=== PATIENT | female | born 1955 | race Caucasian/White ===

== ENCOUNTER 2017-05-09 17:11 | Inpatient (IN) ==
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
[2017-05-09] MEDS ORDERED: SODIUM CHLORIDE 0.9% 500 ML IV STA (17:53)
--- NOTE | 2017-05-09 18:05 | XRay Report ---
XR chest 2V Indication: Shortness of breath Comparison: 14 November 2016 Findings: The heart and mediastinum are stable in size and configuration with cardiac surgery changes. The pulmonary vascularity is normal in caliber. Lung volumes are increased with prominent bronchial markings. No lung infiltrates, effusions, pneumothorax or other abnormality is demonstrated. Impression: Chronic lung and cardiac surgery changes. No acute process or significant change. PROCEDURE INTERPRETED AT [facility] DEPARTMENT OF RADIOLOGY Final Report Signed by: Dr. Kurt Parsons
[2017-05-09 18:11] LABS: Basophils % 0.8 % (0.0-0.8); Eosinophils % 0.6 % (0.00-10.9); Hemoglobin 13.6 GM/DL (12.0-16.0); Immature Granulocytes % 0.4 %; Immature Granulocytes Absolute 0.02 #; Lymphocytes % 18.1 % (21.3-54.2); Mean Corpuscular Hemoglobin 37 PG (27-34); Mean Corpuscular Volume 109.3 FL (87-102); Mean Platelet Volume 12.3 FL (9.6-12.0); Monocytes # 0.4 10*3/uL (0.11-0.8); Monocytes % 7.4 % (1.7-12.7); Neutrophils # 3.9 10*3/uL (1.4-7.4); Neutrophils % 72.7 % (38.7-73.9); Platelet Count 179 T/CUMM (130-400); Red Blood Count 3.66 MC/CUMM (3.8-5.5); White Blood Count 5.3 T/CUMM (4-12)
--- NOTE | 2017-05-09 18:11 | EKG Report ---
Stationary ECG Study [facility] ER Test Date: 05/09/2017 6:11:39 PM Pat Name: SATHYA RAYMOND Department: Room: Gender: F Machine Assembler Supervisor: : 1955 Requested by: Salvador Medina Order Number: [id number] Reading MD: THAD PENN Intervals [place] Rate: 89 P: 59 SD: 92 QRS: 69 QRSD: 91 T: 79 QT: 399 QTc: 446 Interpretive Statements SINUS RHYTHM WITH SHORT SD INTERVAL WITH OCCASIONAL SUPRAVENTRICULAR PREMATURE COMPLEXES at 89 bpm NONSPECIFIC T-WAVE ABNORMALITY (anterior ischemic changes on previous tracing November 14, 2016 are now resolved) Electronically Signed On 05-10-17 12:23:47 CDT by THAD PENN [email or web address]
[2017-05-09 18:22] LABS: INR 1.1; PT Patient Result 11.2 SECS; Partial Thromboplastin Time 25.8 SECS (0-40)
[2017-05-09 18:35] LABS: Alanine Aminotransferase 55 U/L (13-56); Albumin 4.5 G/DL (3.4-5.0); Alkaline Phosphatase 62 U/L (45-117); Aspartate Amino Transferase 33 U/L (0-37); Blood Urea Nitrogen 24 MG/DL (7-18); Calcium 9.2 MG/DL (8.5-10.1); Glucose 100 MG/DL (74-106); Osmolality,Calculated 278.7 MOS/KG (273-304); Potassium 3.9 MMOL/L (3.5-5.1); Sodium 138 MMOL/L (136-145); Total Protein 8.1 G/DL (6.4-8.3); Troponin I Only < 0.015 NG/ML (0.00-0.045)
[2017-05-09] MEDS ORDERED: NITROGLYCERIN SL 0.4 MG TABLET SL PRN (20:54)
[2017-05-09] MEDS ORDERED: ONDANSETRON 4 MG/2 ML VIAL IV PRN (20:54)
[2017-05-09] MEDS ORDERED: SODIUM CHLORIDE 0.45% 1,000 ML IV SCH (21:00)
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
[2017-05-09] MEDS: MORPHINE 2 MG/1 ML SYRINGE IV PRN (22:48)
[2017-05-09] MEDS: ALPRAZolam 0.5 MG TABLET PO SCH (22:48)
[2017-05-09] MEDS: ZALEPLON 5 MG CAPSULE PO PRN (22:49)
[2017-05-10 03:23] LABS: Basophils % 0.6 % (0.0-0.8); Eosinophils # 0.1 10*3/uL (0.0-0.87); Eosinophils % 1.5 % (0.00-10.9); Hematocrit 31.7 VOL% (35.7-47.0); Hemoglobin 10.9 GM/DL (12.0-16.0); Immature Granulocytes % 0.3 %; Immature Granulocytes Absolute 0.02 #; Lymphocytes % 15.1 % (21.3-54.2); Mean Corpuscular HGB Conc 34.4 GM/DL (32-36); Mean Corpuscular Hemoglobin 38 PG (27-34); Mean Corpuscular Volume 109.3 FL (87-102); Mean Platelet Volume 12.6 FL (9.6-12.0); Monocytes # 0.6 10*3/uL (0.11-0.8); Monocytes % 9.5 % (1.7-12.7); Neutrophils # 4.8 10*3/uL (1.4-7.4); Platelet Count 135 T/CUMM (130-400); Red Cell Distribution Width 13.9 % (9.3-17.3); White Blood Count 6.5 T/CUMM (4-12)
[2017-05-10] MEDS: MORPHINE 2 MG/1 ML SYRINGE IV PRN (03:34)
[2017-05-10 03:51] LABS: Calcium 8.3 MG/DL (8.5-10.1); Osmolality,Calculated 282.5 MOS/KG (273-304); Potassium 3.7 MMOL/L (3.5-5.1)
[2017-05-10] MEDS: LEVOTHYROXINE 100 MCG TABLET PO SCH (06:37)
--- NOTE | 2017-05-10 07:58 | EKG Report ---
Please refer to the EKG image. Final interpretation is pending.
--- NOTE | 2017-05-10 08:21 | EKG Report ---
Please refer to the EKG image. Final interpretation is pending.
[2017-05-10] MEDS: FLUoxetine 20 MG CAPSULE PO SCH (08:38)
[2017-05-10] MEDS: DOCUSATE SODIUM 100 MG CAPSULE PO SCH (08:38)
[2017-05-10] MEDS: ASPIRIN CHEW 81 MG TABLET PO SCH (08:39)
[2017-05-10] MEDS: ALPRAZolam 0.5 MG TABLET PO SCH ×2 (08:39→20:53)
[2017-05-10] MEDS: LISINOPRIL 5 MG TABLET PO SCH (08:39)
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
[2017-05-10] MEDS ORDERED: POTASSIUM CHLORIDE 20 MEQ TABLET PO ONE (11:43)
--- NOTE | 2017-05-10 17:24 | Hospitalist Progress Note ---
Assessment and Plan (1) Chronic pain Status: Acute Assessment and plan: Patient is on chronic pain meds Will follow with Dr Dennis as outpt. Current Visit: Yes (2) Chest pain Status: Acute Assessment and plan: Cardiac enzymes are negative. She ran out of her pain meds.Cardiology states it is not cardiac in origin Plan For dc in am Current Visit: No (3) Hypothyroid Status: Acute Assessment and plan: on synthroid. TSH level Current Visit: No Hospitalist: Subjective Interval history: Patient complained of a chest pain earlier on, cardiac enzymes were negative. Cardiology saw and thought it was not cardiac origin. Patient is currently pain free and she requested to be dcd in am. Exam - Constitutional Vitals: Period Temp Pulse Resp BP Sys/Diehl Pulse Ox Last 24 Hr 97 F-98.3 F 78-92 16-18 89-101/50-63 95-99 General appearance: no acute distress, cachectic - Head Head exam: Present: normal inspection - Respiratory Respiratory exam: Present: clear to auscultation bilaterally - Cardiovascular Cardiovascular exam: Present: regular rate and rhythm - Extremities Exam Extremities exam: Present: normal inspection - Back Exam Back exam: Present: normal inspection - Neurological Exam Neurological exam: Present: alert, oriented X3 Results - Labs CBC & BMP: 05/10/17 02:54 05/10/17 02:54 Lab Results: I have reviewed the past 24 hour labs Specialty Discharge - Follow Up or Referrals
[2017-05-10] MEDS ORDERED: ENOXAPARIN 40 MG/0.4 ML SYRINGE SUBCUT SCH (17:30)
[2017-05-10 18:07] LABS: Troponin I Only < 0.015 NG/ML (0.00-0.045)
[2017-05-10 18:12] LABS: Free T4 (Free Thyroxine) 1.21 NG/DL (0.76-1.46); Thyroid Stimulating Hormone 0.08 uIU/ml (0.358-3.74)
[2017-05-10] MEDS: ZALEPLON 5 MG CAPSULE PO PRN (20:53)
[2017-05-11] MEDS: FLUoxetine 20 MG CAPSULE PO SCH (08:05)
[2017-05-11] MEDS: ALPRAZolam 0.5 MG TABLET PO SCH (08:06)
[2017-05-11] MEDS: ASPIRIN CHEW 81 MG TABLET PO SCH (08:06)
[2017-05-11] MEDS: LISINOPRIL 5 MG TABLET PO SCH (08:06)
[2017-05-11] MEDS: LEVOTHYROXINE 100 MCG TABLET PO SCH (08:45)
--- NOTE | 2017-05-11 09:01 | Discharge Summary ---
<Moe Redding - Last Filed: 05/11/17 08:49> Hospital Course - Hospital Course Hospital Course: Ms. Alvarado is a 61-year-old female who was admitted to the [facility] ED on 2016 with complaints of 2 days of nonradiating left-sided chest pain. Patient does have an extensive cardiac history having undergone a valve replacement approximately 6 months ago with a clean cardiac catheterization around the same time. On admission, chest x-ray revealed chronic lung and cardiac surgery changes with no acute process or significant change. EKG reveals sinus rhythm with short PA interval with occasional supraventricular premature complexes and nonspecific T-wave abnormality. Patient was admitted to telemetry through the hospital medicine service with chest pain, shortness of breath and nausea/ vomiting. Upon cardiology consultation, patient was found to have no evidence of cardiac abnormality. Cardiac enzymes were negative. This appears to be related to her chronic pain. Cardiology recommends restarting pain medication and follow-up with her pain physician regarding this (Dr. Dennis). She should also follow with her primary smoking pipe driller and threader Dr. Granda on a routine basis.this am , her vitals are stable and she is ready to be dcd. - Time spent with patient Time with patient DS: Greater than 30 minutes Specialty Discharge - Follow Up or Referrals Discharge Plan - Discharge Data Disposition: Disch To Home/Self Care - Discharge Medications Continue Fluoxetine HCl [Prozac] 40 mg PO DAILY HYDROcodone/ACETAMIN 10-325 [[place] 10-325] 1 tablet PO Q6H #20 tablet Ondansetron Tab [Zofran Tab] 4 mg PO Q4H #30 tablet Pantoprazole Tab [Protonix Tab] 40 mg PO DAILY Aspirin Chew Tab 81 mg PO DAILY #30 tablet Docusate Sodium Cap [Colace Cap] 100 mg PO DAILY capsule fentaNYL 12 MCG/HR PATCH [Duragesic 12 Patch] 1 patch TRANSDERM Q3DAY #7 patch Levothyroxine Tab [Synthroid Tab] 100 mcg PO DAILY@0700 HYDROcodone/ACETAMIN 10-325 [[place] 10-325] 1 tablet PO Q4H PRN PRN Reason: Pain Zaleplon [Sonata] 5 mg PO BEDTIME PRN #0 capsule PRN Reason: Sleep ALPRAZolam [Xanax] 0.5 mg PO BID #20 tablet Lisinopril [Prinivil] 5 mg PO DAILY #30 tablet - Follow Up or Referral - Forms/Instructions Instructions: Heart Failure (ED) Exam - Constitutional Vitals: Period Temp Pulse Resp BP Sys/Diehl Pulse Ox Last 24 Hr 97 F-98.4 F 86-99 16-20 95-111/46-54 96-98 Discharge Results Procedures and tests throughout hospitalization: Pending Orders 05/09/17 18:09 Blood Culture Stat Labs on day of discharge: Labs from last 24 hours 05/10/17 05/10/17 05/10/17 17:33 17:33 17:30 D-Dimer, Quantitative <= 0.5 Total Creatine Kinase 57 CK-MB (CK-2) 2.9 Troponin I < 0.015 Free T4 1.21 TSH 3rd Generation 0.080 L Preliminary micro results at discharge 05/09/17 18:09 Blood Culture - Preliminary Blood No growth at 1 day 05/09/17 18:02 Blood Culture - Preliminary Blood No growth at 1 day DS: Provider Date of admission: 05/09/17 20:36 Primary care physician: Dolly Duggan MD Attending physician on admission: Dominic Andrews DO Consults: 05/09/17 21:01 Consult to Cardiac Rehabilitation [CONS] Routine Reason for Cardiac Rehabilitation: Risk Factor Modification 05/10/17 07:27 Consult to Physician [CONS] Routine Comment: Consulting Provider: Consult to Specialist Group: Cardiology Discharging clinician: Moe ROLON Expected date of discharge: 05/11/17 <Sherita Goss - Last Filed: 05/11/17 09:11> Hospital Course - Time spent with patient Time with patient DS: Greater than 30 minutes (Time spent: >35mins) Diagnosis - Discharge Diagnosis (1) Chronic pain Status: Acute (2) Chest pain Status: Acute (3) Hypothyroid Status: Acute Discharge Plan - Discharge Data Condition at Discharge: Stable Discharge Diet: advance to your usual diet Activity: resume usual activities as tolerated - Forms/Instructions Additional Discharge Instructions: follow up with PCP in 1week, follow with Dr Dennis as scheduled Exam - Constitutional General appearance: no acute distress, cachectic - Head Head exam: Present: normal inspection - Respiratory Respiratory exam: Present: clear to auscultation bilaterally - Cardiovascular Cardiovascular exam: Present: regular rate and rhythm - GI/Abdominal GI/Abdominal exam: Present: normal bowel sounds - Extremities Exam Extremities exam: Present: normal inspection
[2017-05-11] MEDS: DOCUSATE SODIUM 100 MG CAPSULE PO SCH (11:42)
[2017-05-11 11:49] VITALS: BP 94/45
--- NOTE | 2017-05-13 13:10 | Physician Query Form ---
CLICK EDIT DOCUMENT TO SELECT QUERY ANSWER --> OK --> SIGN Aminata Solares RN, CCDS Certified Clinical Surgical Services Asst W) [phone] (f) [phone] [email or web address] PROVIDERS: Make your selection(s) from the choices in EACH section by typing an "x" and enter comments in the comment section. Please use your independent medical judgment in providing your response. This request does not imply that any particular answer is desired or expected. CLINICAL INDICATORS: (Providers should not edit this section) Height: Height of 66" Weight: Weight of 89 Pounds Stretching Machine Tender Frame BMI: BMI of 14.4# Nutritional supplements: Torch Straightener And Heater notes: Other clinical notes: The medical record indicates that the patient was admitted with chest pain (Non- cardiac), "underweight", "Cachectic", "Temporal wasting bilaterally", "states she also has a poor appetite", "half her stomach was removed about 8 years ago" , "loss of body fat", "loss of muscle mass", and "Send trial Breeze with b' fast tray". BMI of 14.4#----Height of 66"----Weight of 89 Pounds Based on the above, which following choice most accurately represents the patient's nutritional status? ( ) Malnutrition ( ) mild ( ) moderate ( x) severe ( ) Protein calorie malnutrition ( ) mild ( ) moderate ( ) severe ( ) Emaciation due to malnutrition ( ) Nutritional marasmus ( ) Cachexia ( ) Underweight ( ) No nutritional deficiency ( ) Other, please specify: ( ) Clinically unable to determine Mild Malnutrition (BMI < 18.5, % Normal Body Weight 85-95%) Moderate Malnutrition (BMI < 17, % Normal Body Weight 75-85%) Severe Malnutrition (BMI < 16, % Normal Body Weight < 75%) Source: Shayla COMMENTS: PLEASE ALSO DOCUMENT RESPONSE IN PROGRESS NOTES AND/OR DISCHARGE SUMMARY Use of terms such as suspected, likely, or probable (associated with a specific diagnosis that is being evaluated, monitored, or treated as if it exists) are acceptable and can be restated in the discharge summary if not ruled out. MTDD
== END 2017-05-11 13:35 | disposition home or self-care (01) | DRG 313 ==
LOC: EDUNIT# → EDBD → N.ED 17:11 → N.EDINP 20:36 → SUATTDRO 20:36 → N.TELEN 21:03
PROVIDERS: ADMIT Phlebology; ATTEND Internal Medicine

== ENCOUNTER 2021-02-10 16:39 | Inpatient (IN) ==
[2021-02-10 17:26] LABS: Basophils % 0.1 % (0.0-0.8); Hematocrit 32.5 VOL% (35.7-47.0); Hemoglobin 10.4 GM/DL (12.0-16.0); Immature Granulocytes % 0.6 %; Immature Granulocytes Absolute 0.08 #; Lymphocytes # 0.3 10*3/uL (1.4-4.0); Lymphocytes % 2.4 % (21.3-54.2); Mean Platelet Volume 12.8 FL (9.6-12.0); Monocytes % 7.1 % (1.7-12.7); Neutrophils % 89.8 % (38.7-73.9); Platelet Count 162 T/CUMM (130-400); Red Blood Count 3.35 MC/CUMM (3.8-5.5); Red Cell Distribution Width 14.6 % (9.3-17.3); White Blood Count 14.4 T/CUMM (4-12)
[2021-02-10 17:33] LABS: Bacteria,Urine Few /HPF (Few); Bilirubin,Urine Negative (Negative); Blood, Urine Small mg/dL (Negative); Glucose,Urine (UA) Negative (Negative); Ketones,Urine Negative (Negative); Nitrite,Urine Positive (Negative); Protein,Urine 100 MG/DL; RBC,Urine 2 /HPF (0-4); Squamous Epithelial Cell,Urine Occasional /HPF (0-10); Urine Appearance Slightly Hazy (Clear); Urine Color Yellow (Yellow); Urine Specific Gravity 1.013 (1.001-1.035); Urine Urobilinogen < 2.0 EU/DL (0.2-1.0); WBC,Urine 67 /HPF (0-6)
[2021-02-10 17:45] LABS: Albumin 3.3 G/DL (3.4-5.0); Bilirubin,Total 0.8 MG/DL (0.2-1.0); Calcium 8.1 MG/DL (8.5-10.1); Osmolality,Calculated 281.7 MOS/KG (273-304); Potassium 2.8 MMOL/L (3.5-5.1); Total Protein 7.8 G/DL (6.4-8.2)
[2021-02-10 18:17] LABS: Lymphocytes 1 % (20-55); Segmented Neutrophils 96 % (50-85); Total Cells Counted 100
[2021-02-10 18:18] LABS: Platelet Estimate Adequate
[2021-02-10] MEDS ORDERED: POTASSIUM CHLORIDE 20 MEQ TABLET PO STA (19:53)
[2021-02-10] MEDS ORDERED: SODIUM CHLORIDE 0.9% 1,000 ML IV STA (20:05)
[2021-02-10] MEDS ORDERED: PIPERACILLIN/TAZOBACTAM 3,375 MG in SODIUM CHLORIDE 0.9% 100 ML IV STA (22:15)
[2021-02-10] MEDS ORDERED: ZALEPLON 5 MG CAPSULE PO PRN (22:42)
[2021-02-10] MEDS ORDERED: DEXTROSE 50% 25 GM/50 ML VIAL IV PRN (22:42)
[2021-02-10] MEDS ORDERED: GLUCAGON 1 MG VIAL IM PRN (22:42)
[2021-02-10] MEDS ORDERED: IBUPROFEN 400 MG TABLET PO PRN (22:53)
[2021-02-10] MEDS: SODIUM CHLORIDE 0.9% 1,000 ML IV SCH (23:50)
[2021-02-10] MEDS: traZODone 50 MG TABLET PO SCH (23:54)
[2021-02-11] MEDS: ACETAMINOPHEN 325 MG TABLET PO PRN ×3 (01:49→18:15)
[2021-02-11] MEDS: PIPERACILLIN/TAZOBACTAM 3,375 MG in SODIUM CHLORIDE 0.9% 100 ML IV SCH ×3 (05:32→22:05)
[2021-02-11] MEDS: LEVOTHYROXINE 50 MCG TABLET PO SCH (05:32)
[2021-02-11 07:31] LABS: Basophils % 0.2 % (0.0-0.8); Hematocrit 26.7 VOL% (35.7-47.0); Hemoglobin 8.4 GM/DL (12.0-16.0); Immature Granulocytes % 0.8 %; Immature Granulocytes Absolute 0.09 #; Lymphocytes # 0.7 10*3/uL (1.4-4.0); Lymphocytes % 5.5 % (21.3-54.2); Mean Corpuscular HGB Conc 31.5 GM/DL (32-36); Mean Corpuscular Volume 98.5 FL (87-102); Mean Platelet Volume 13.1 FL (9.6-12.0); Monocytes % 8.6 % (1.7-12.7); Neutrophils % 84.9 % (38.7-73.9); Platelet Count 140 T/CUMM (130-400); Red Blood Count 2.71 MC/CUMM (3.8-5.5); Red Cell Distribution Width 14.8 % (9.3-17.3); White Blood Count 11.9 T/CUMM (4-12)
[2021-02-11 08:00] LABS: Alanine Aminotransferase 15 U/L (13-56); Albumin 2.6 G/DL (3.4-5.0); Alkaline Phosphatase 66 U/L (45-117); Aspartate Amino Transferase 20 U/L (0-37); Bilirubin,Total < 0.39 MG/DL (0.2-1.0); Blood Urea Nitrogen 21 MG/DL (7-18); Calcium 7.8 MG/DL (8.5-10.1); Carbon Dioxide 24 MMOL/L (21-32); Estimated Glom Filtration Rate 33 ML/MIN; Glucose 111 MG/DL (74-106); Osmolality,Calculated 286.1 MOS/KG (273-304); Potassium 2.6 MMOL/L (3.5-5.1); Sodium 142 MMOL/L (136-145); Total Protein 6.3 G/DL (6.4-8.2)
[2021-02-11] MEDS ORDERED: SODIUM CHLORIDE 0.9% 500 ML IV ONE (08:08)
[2021-02-11] MEDS ORDERED: FUROSEMIDE 20 MG TABLET PO SCH (09:00)
[2021-02-11] MEDS ORDERED: BUPIVACAINE MPF 0.25% 30 ML VIAL ONE (09:02)
[2021-02-11] MEDS ORDERED: LIDOCAINE 1%/EPI INJ 20 ML VIAL ONE (09:02)
[2021-02-11] MEDS ORDERED: TISSUE ADHESIVE 1 EACH APPLICATOR TOP ONE (09:02)
[2021-02-11] MEDS ORDERED: MAGNESIUM SULF RIDER 2 GM/50 ML PREMIX IV ONE (09:33)
[2021-02-11] MEDS ORDERED: SODIUM CHLORIDE 0.9% 1,000 ML IV PRN (09:36)
[2021-02-11] MEDS: PANTOPRAZOLE 40 MG TABLET PO SCH (09:40)
[2021-02-11] MEDS: ALPRAZolam 0.25 MG TABLET PO SCH ×3 (09:40→22:00)
[2021-02-11] MEDS: SODIUM CHLORIDE 0.9% 1,000 ML IV SCH ×3 (10:15→22:03)
[2021-02-11] MEDS: FLUoxetine 20 MG CAPSULE PO SCH (10:15)
[2021-02-11] MEDS: POTASSIUM CHLORIDE RIDER 10 MEQ in PREMIX 1 EACH IV SCH ×4 (10:25→16:19)
[2021-02-11] MEDS ORDERED: POTASSIUM CHLORIDE 20 MEQ/15 ML UDCUP PO ONE (13:11)
[2021-02-11 14:12] LABS: Folate 9.74 NG/ML (5.38-24.0)
[2021-02-11 14:23] LABS: % Iron Saturation 4.1 % (18-50); Ferritin 77.5 ng/ml (8-252)
[2021-02-11] MEDS: ONDANSETRON 4 MG/2 ML VIAL IV PRN ×2 (16:01→22:04)
[2021-02-11] MEDS ORDERED: LEVOFLOXACIN INJ 500 MG/100 ML PREMIX IV SCH (17:00)
[2021-02-11] MEDS: CIPROFLOXACIN INJ 400 MG/200 ML PREMIX IV SCH (17:34)
[2021-02-11] MEDS ORDERED: VANCOMYCIN INJ 750 MG in SODIUM CHLORIDE 0.9% 250 ML IV SCH (21:00)
[2021-02-11] MEDS: traZODone 50 MG TABLET PO SCH (22:00)
[2021-02-11] MEDS: ENOXAPARIN 30 MG/0.3 ML SYRINGE SUBCUT SCH (22:04)
[2021-02-12] MEDS: CIPROFLOXACIN INJ 400 MG/200 ML PREMIX IV SCH ×2 (05:50→17:08)
[2021-02-12] MEDS: PIPERACILLIN/TAZOBACTAM 3,375 MG in SODIUM CHLORIDE 0.9% 100 ML IV SCH ×2 (05:50→14:06)
[2021-02-12] MEDS: LEVOTHYROXINE 50 MCG TABLET PO SCH (05:51)
[2021-02-12 06:15] LABS: Basophils % 0.3 % (0.0-0.8); Eosinophils # 0.2 10*3/uL (0.0-0.87); Eosinophils % 2.1 % (0.00-10.9); Hematocrit 33.5 VOL% (35.7-47.0); Hemoglobin 10.5 GM/DL (12.0-16.0); Immature Granulocytes % 0.8 %; Immature Granulocytes Absolute 0.07 #; Lymphocytes # 0.5 10*3/uL (1.4-4.0); Lymphocytes % 5.8 % (21.3-54.2); Mean Corpuscular HGB Conc 31.3 GM/DL (32-36); Mean Corpuscular Volume 95.7 FL (87-102); Mean Platelet Volume 12.9 FL (9.6-12.0); Monocytes % 6.9 % (1.7-12.7); Neutrophils % 84.1 % (38.7-73.9); Platelet Count 153 T/CUMM (130-400); Red Cell Distribution Width 17.7 % (9.3-17.3); White Blood Count 9.3 T/CUMM (4-12)
[2021-02-12 06:29] LABS: Albumin 2.4 G/DL (3.4-5.0); Bilirubin,Total 1.1 MG/DL (0.2-1.0); Calcium 8.2 MG/DL (8.5-10.1); Osmolality,Calculated 278.3 MOS/KG (273-304); Potassium 3.8 MMOL/L (3.5-5.1); Total Protein 6.1 G/DL (6.4-8.2)
[2021-02-12 06:51] LABS: Hypochromasia Slight; Microcytosis Slight; Platelet Estimate Adequate
[2021-02-12] MEDS: POTASSIUM CHLORIDE RIDER 10 MEQ in PREMIX 1 EACH IV SCH (07:17)
[2021-02-12] MEDS ORDERED: propofoL 200 MG/20 ML VIAL IV ONE (10:00)
[2021-02-12] MEDS ORDERED: fentaNYL 100 MCG/2 ML VIAL ONE (10:00)
[2021-02-12] MEDS ORDERED: MIDAZOLAM 2 MG/2 ML VIAL ONE (10:00)
[2021-02-12] MEDS ORDERED: ONDANSETRON 4 MG/2 ML VIAL ONE (10:00)
[2021-02-12] MEDS ORDERED: DEXAMETHASONE 4 MG/1 ML VIAL ONE (10:00)
[2021-02-12] MEDS ORDERED: ROCURONIUM 50 MG/5 ML VIAL IV ONE (10:00)
[2021-02-12] MEDS ORDERED: LIDOCAINE 2% 5 ML VIAL ONE (10:00)
[2021-02-12] MEDS ORDERED: BUPIVACAINE MPF 0.25% 30 ML VIAL ONE (10:02)
[2021-02-12] MEDS ORDERED: LIDOCAINE 1%/EPI INJ 20 ML VIAL ONE (10:02)
[2021-02-12] MEDS: SODIUM CHLORIDE 0.9% 1,000 ML IV SCH (10:09)
[2021-02-12] MEDS ORDERED: TISSUE ADHESIVE 1 EACH APPLICATOR TOP ONE (10:48)
[2021-02-12] MEDS ORDERED: SEVOFLURANE 1 UNIT/15 MINUTE INH ONE ×2 (10:59→11:53)
[2021-02-12] MEDS ORDERED: NEOSTIGMINE 10 MG/10 ML VIAL ONE (11:00)
[2021-02-12] MEDS ORDERED: GLYCOPYRROLATE 0.4 MG/2 ML VIAL ONE (11:00)
[2021-02-12] MEDS ORDERED: PHENYLEPHRINE 1 MG/10 ML SYRINGE IV ONE (11:00)
[2021-02-12] MEDS ORDERED: ACETAMINOPHEN INJ 1,000 MG/100 ML VIAL IV ONE (11:05)
[2021-02-12] MEDS ORDERED: SUCCINYLCHOLINE 200 MG/10 ML VIAL ONE (11:06)
[2021-02-12] MEDS: ALPRAZolam 0.25 MG TABLET PO SCH ×3 (11:12→20:55)
[2021-02-12] MEDS: PANTOPRAZOLE 40 MG TABLET PO SCH (13:08)
[2021-02-12] MEDS: FLUoxetine 20 MG CAPSULE PO SCH (13:08)
[2021-02-12] MEDS: ACETAMINOPHEN 325 MG TABLET PO PRN (15:39)
[2021-02-12] MEDS: MEROPENEM 500 MG in SODIUM CHLORIDE 0.9% 100 ML IV SCH ×2 (16:02→21:00)
[2021-02-12] MEDS: MORPHINE 4 MG/1 ML VIAL IV PRN ×2 (16:20→21:02)
[2021-02-12] MEDS: ENOXAPARIN 30 MG/0.3 ML SYRINGE SUBCUT SCH (20:55)
[2021-02-12] MEDS: traZODone 50 MG TABLET PO SCH (20:55)
[2021-02-13] MEDS: SODIUM CHLORIDE 0.9% 1,000 ML IV SCH ×3 (00:43→15:10)
[2021-02-13] MEDS: MORPHINE 4 MG/1 ML VIAL IV PRN ×5 (01:49→23:12)
[2021-02-13] MEDS: MEROPENEM 500 MG in SODIUM CHLORIDE 0.9% 100 ML IV SCH ×4 (03:40→21:31)
[2021-02-13] MEDS: CIPROFLOXACIN INJ 400 MG/200 ML PREMIX IV SCH (05:12)
[2021-02-13 05:34] LABS: Hematocrit 32.7 VOL% (35.7-47.0); Hemoglobin 10.1 GM/DL (12.0-16.0); Immature Granulocytes % 0.6 %; Immature Granulocytes Absolute 0.04 #; Lymphocytes # 0.4 10*3/uL (1.4-4.0); Lymphocytes % 5.7 % (21.3-54.2); Mean Corpuscular HGB Conc 30.9 GM/DL (32-36); Mean Corpuscular Volume 95.3 FL (87-102); Mean Platelet Volume 12.7 FL (9.6-12.0); Monocytes % 3.7 % (1.7-12.7); Platelet Count 159 T/CUMM (130-400); Red Blood Count 3.43 MC/CUMM (3.8-5.5); Red Cell Distribution Width 17.5 % (9.3-17.3); White Blood Count 6.8 T/CUMM (4-12)
[2021-02-13 05:57] LABS: Calcium 7.9 MG/DL (8.5-10.1); Osmolality,Calculated 277.4 MOS/KG (273-304); Potassium 4.2 MMOL/L (3.5-5.1)
[2021-02-13] MEDS: FLUoxetine 20 MG CAPSULE PO SCH (08:08)
[2021-02-13] MEDS: ALPRAZolam 0.25 MG TABLET PO SCH ×3 (08:09→20:44)
[2021-02-13] MEDS: PANTOPRAZOLE 40 MG TABLET PO SCH (08:09)
[2021-02-13] MEDS: ENOXAPARIN 30 MG/0.3 ML SYRINGE SUBCUT SCH (20:45)
[2021-02-13] MEDS: traZODone 50 MG TABLET PO SCH (20:45)
[2021-02-14] MEDS: MORPHINE 4 MG/1 ML VIAL IV PRN ×3 (04:04→15:18)
[2021-02-14] MEDS: MEROPENEM 500 MG in SODIUM CHLORIDE 0.9% 100 ML IV SCH ×4 (04:06→22:05)
[2021-02-14 05:50] LABS: Basophils % 0.3 % (0.0-0.8); Eosinophils # 0.1 10*3/uL (0.0-0.87); Eosinophils % 1.4 % (0.00-10.9); Hematocrit 32.5 VOL% (35.7-47.0); Hemoglobin 10.4 GM/DL (12.0-16.0); Immature Granulocytes % 0.6 %; Immature Granulocytes Absolute 0.04 #; Lymphocytes # 0.8 10*3/uL (1.4-4.0); Lymphocytes % 11.6 % (21.3-54.2); Mean Corpuscular Volume 93.9 FL (87-102); Mean Platelet Volume 12.5 FL (9.6-12.0); Neutrophils % 77.1 % (38.7-73.9); Platelet Count 184 T/CUMM (130-400); Red Blood Count 3.46 MC/CUMM (3.8-5.5); Red Cell Distribution Width 17.1 % (9.3-17.3)
[2021-02-14 06:06] LABS: Calcium 7.6 MG/DL (8.5-10.1); Osmolality,Calculated 275.4 MOS/KG (273-304); Potassium 3.4 MMOL/L (3.5-5.1)
[2021-02-14] MEDS: ALPRAZolam 0.25 MG TABLET PO SCH ×3 (08:24→21:45)
[2021-02-14] MEDS: FLUoxetine 20 MG CAPSULE PO SCH (08:24)
[2021-02-14] MEDS: PANTOPRAZOLE 40 MG TABLET PO SCH (08:24)
[2021-02-14] MEDS: POLYETHYLENE GLYCOL POWDER 17 GM PACK PO SCH (08:25)
[2021-02-14] MEDS: ONDANSETRON 4 MG/2 ML VIAL IV PRN ×3 (08:31→22:04)
[2021-02-14] MEDS: SODIUM CHLORIDE 0.9% 1,000 ML IV SCH ×2 (09:19→22:04)
[2021-02-14] MEDS ORDERED: POTASSIUM CHLORIDE 20 MEQ/15 ML UDCUP PO ONE (13:09)
[2021-02-14] MEDS: ENOXAPARIN 30 MG/0.3 ML SYRINGE SUBCUT SCH (21:45)
[2021-02-14] MEDS: traZODone 50 MG TABLET PO SCH (21:45)
[2021-02-15] MEDS: MORPHINE 4 MG/1 ML VIAL IV PRN ×2 (03:17→09:42)
[2021-02-15] MEDS: ONDANSETRON 4 MG/2 ML VIAL IV PRN ×2 (03:17→09:21)
[2021-02-15] MEDS: MEROPENEM 500 MG in SODIUM CHLORIDE 0.9% 100 ML IV SCH ×2 (04:08→09:24)
[2021-02-15 05:54] LABS: Basophils % 0.4 % (0.0-0.8); Eosinophils # 0.3 10*3/uL (0.0-0.87); Eosinophils % 4.9 % (0.00-10.9); Hematocrit 32.6 VOL% (35.7-47.0); Hemoglobin 10.4 GM/DL (12.0-16.0); Immature Granulocytes % 0.9 %; Immature Granulocytes Absolute 0.05 #; Lymphocytes # 0.7 10*3/uL (1.4-4.0); Lymphocytes % 12.5 % (21.3-54.2); Mean Corpuscular HGB Conc 31.9 GM/DL (32-36); Mean Corpuscular Volume 94.2 FL (87-102); Mean Platelet Volume 12.1 FL (9.6-12.0); Monocytes % 8.3 % (1.7-12.7); Platelet Count 181 T/CUMM (130-400); Red Blood Count 3.46 MC/CUMM (3.8-5.5); Red Cell Distribution Width 16.4 % (9.3-17.3); White Blood Count 5.3 T/CUMM (4-12)
[2021-02-15 06:16] LABS: Calcium 7.7 MG/DL (8.5-10.1); Osmolality,Calculated 276.3 MOS/KG (273-304); Potassium 3.5 MMOL/L (3.5-5.1)
[2021-02-15] MEDS: PANTOPRAZOLE 40 MG TABLET PO SCH (09:24)
[2021-02-15] MEDS: ALPRAZolam 0.25 MG TABLET PO SCH ×2 (09:24→14:10)
[2021-02-15] MEDS: FLUoxetine 20 MG CAPSULE PO SCH (09:24)
[2021-02-15] MEDS: POLYETHYLENE GLYCOL POWDER 17 GM PACK PO SCH (09:36)
[2021-02-15 11:47] VITALS: BP 93/57
[2021-02-15] MEDS: ACETAMINOPHEN 325 MG TABLET PO PRN (14:10)
[2021-02-15] MEDS: SODIUM CHLORIDE 0.9% 1,000 ML IV SCH (14:26)
== END 2021-02-15 14:53 | DRG 853 ==
LOC: EDBD → EDUNIT# → N.ED 16:39 → N.EDINP 22:42 → N.TELEN 02-11 01:43
PROVIDERS: ADMIT Internal Medicine; ATTEND Internal Medicine

== ENCOUNTER 2021-09-19 17:57 | Inpatient (IN) ==
[2021-09-19] MEDS ORDERED: HYDROmorphone 2 MG/1 ML VIAL IV STA (18:55)
[2021-09-19] MEDS ORDERED: PANTOPRAZOLE 40 MG VIAL IV STA (18:55)
[2021-09-19] MEDS ORDERED: SODIUM CHLORIDE 0.9% 1,000 ML IV STA ×2 (18:55→19:57)
[2021-09-19] MEDS ORDERED: ONDANSETRON 4 MG/2 ML VIAL IV STA ×2 (18:55→22:21)
[2021-09-19 19:04] LABS: Basophils % 0.1 % (0.0-0.8); Hematocrit 36.9 VOL% (35.7-47.0); Hemoglobin 11.7 GM/DL (12.0-16.0); Immature Granulocytes % 1.5 %; Immature Granulocytes Absolute 0.18 #; Lymphocytes # 0.4 10*3/uL (1.4-4.0); Lymphocytes % 3.3 % (21.3-54.2); Mean Corpuscular HGB Conc 31.7 GM/DL (32-36); Mean Corpuscular Volume 94.6 FL (87-102); Mean Platelet Volume 13.1 FL (9.6-12.0); Monocytes % 3.4 % (1.7-12.7); Neutrophils % 91.7 % (38.7-73.9); Platelet Count 136 T/CUMM (130-400); Red Cell Distribution Width 16.5 % (9.3-17.3); White Blood Count 12.2 T/CUMM (4-12)
[2021-09-19 19:14] LABS: Alanine Aminotransferase 31 U/L (13-56); Albumin 2.7 G/DL (3.4-5.0); Alkaline Phosphatase 41 U/L (45-117); Amylase 33 U/L (25-115); Aspartate Amino Transferase 26 U/L (0-37); Blood Urea Nitrogen 20 MG/DL (7-18); Calcium 7.3 MG/DL (8.5-10.1); Carbon Dioxide 13 MMOL/L (21-32); Estimated Glom Filtration Rate 25 ML/MIN; Glucose 122 MG/DL (74-106); Osmolality,Calculated 289.8 MOS/KG (273-304); Potassium 3.7 MMOL/L (3.5-5.1); Sodium 144 MMOL/L (136-145); Total Protein 6.1 G/DL (6.4-8.2)
[2021-09-19] MEDS ORDERED: PIPERACILLIN/TAZOBACTAM 3,375 MG in SODIUM CHLORIDE 0.9% 100 ML IV STA (19:20)
[2021-09-19] MEDS ORDERED: MAGNESIUM SULF RIDER 2 GM/50 ML PREMIX IV STA (19:21)
[2021-09-19 19:25] LABS: Band Neutrophils 13 % (0-10); Lymphocytes 4 % (20-55); Metamyelocytes 1 %; Segmented Neutrophils 81 % (50-85); Total Cells Counted 100
[2021-09-19 19:26] LABS: Burr Cells Slight; Platelet Estimate Adequate; Poikilocytosis Slight
[2021-09-19] MEDS ORDERED: SODIUM BICARBONATE 50 MEQ/50 ML VIAL IV STA ×2 (19:51→20:34)
[2021-09-19] MEDS ORDERED: HYDROmorphone 2 MG/1 ML VIAL IV ONE (19:58)
[2021-09-19 20:31] LABS: ABG HCO3 12.5 MMOL/L (20-26); ABG Oxygen Saturation 56.6 % (95-100); ABG PCO2 27.7 MM HG (35-48); ABG PH 7.228 (7.35-7.45); ABG TCO2 10.8 MMOL/L (23-27)
[2021-09-19 20:33] LABS: ABG PO2 34.2 MM HG (80-95)
[2021-09-19] MEDS ORDERED: ASPIRIN CHEW 81 MG TABLET PO STA (21:08)
[2021-09-19] MEDS ORDERED: AMIODARONE 150 MG/3 ML VIAL ONE (21:09)
[2021-09-19 21:12] LABS: Bacteria,Urine Many /HPF (Few); Bilirubin,Urine Negative (Negative); Blood, Urine Small mg/dL (Negative); Glucose,Urine (UA) Negative (Negative); Ketones,Urine Negative (Negative); Mucus,Urine Occasional /LPF (Occasional); Nitrite,Urine Negative (Negative); Protein,Urine 30 MG/DL; RBC,Urine 4 /HPF (0-4); Squamous Epithelial Cell,Urine Occasional /HPF (0-10); Urine Appearance Slightly Hazy (Clear); Urine Color Yellow (Yellow); Urine Specific Gravity 1.015 (1.001-1.035); Urine Urobilinogen < 2.0 EU/DL (0.2-1.0)
[2021-09-19] MEDS ORDERED: NOREPINEPHRINE 4 MG/4 ML VIAL IV ONE (21:18)
[2021-09-19] MEDS ORDERED: AMIODARONE IV SCH (21:30)
[2021-09-19] MEDS ORDERED: AMIODARONE INJ 150 MG in DEXTROSE 5% 100 ML IV ONE (21:30)
[2021-09-19] MEDS ORDERED: DEXTROSE 5% IV SCH (21:30)
[2021-09-19 22:00] LABS: INR 1.2
[2021-09-19] MEDS: NOREPINEPHRINE 8 MG in SODIUM CHLORIDE 0.9% 242 ML IV PRN (22:01)
[2021-09-19] MEDS ORDERED: ACETAMINOPHEN 325 MG TABLET PO PRN (22:21)
[2021-09-19] MEDS ORDERED: ONDANSETRON 4 MG/2 ML VIAL IV PRN (22:21)
[2021-09-19] MEDS ORDERED: ALBUTEROL 2.5 MG/3 ML NEB RESP TX PRN (22:21)
[2021-09-19] MEDS ORDERED: MAGNESIUM SULF RIDER 2 GM/50 ML PREMIX IV PRN (22:42)
[2021-09-19] MEDS ORDERED: MAGNESIUM SULF RIDER 4 GM/100 ML PREMIX IV PRN (22:42)
[2021-09-19] MEDS ORDERED: POTASSIUM CHLORIDE 20 MEQ TABLET PO PRN (22:42)
[2021-09-19] MEDS ORDERED: LACTATED RINGERS 2,000 ML IV ONE (22:59)
[2021-09-19 23:06] LABS: ABG Base Excess -11.6 MMOL/L (-2.5-2.5); ABG HCO3 14.8 MMOL/L (20-26); ABG Oxygen Saturation 60.6 % (95-100); ABG PCO2 25.6 MM HG (35-48); ABG PH 7.324 (7.35-7.45); ABG TCO2 12.5 MMOL/L (23-27)
[2021-09-19 23:09] LABS: ABG PO2 35.7 MM HG (80-95)
[2021-09-20] MEDS: SODIUM CHLORIDE 0.9% 1,000 ML IV SCH ×2 (01:30→16:51)
[2021-09-20] MEDS ORDERED: PIPERACILLIN/TAZOBACTAM 3,375 MG in SODIUM CHLORIDE 0.9% 100 ML IV SCH ×2 (04:00→18:00)
[2021-09-20] MEDS ORDERED: ASPIRIN CHEW 81 MG TABLET PO ONE (04:19)
[2021-09-20 05:19] LABS: Basophils # 0.1 10*3/uL (0.0-0.2); Basophils % 0.3 % (0.0-0.8); Eosinophils % 0.1 % (0.00-10.9); Hematocrit 36.3 VOL% (35.7-47.0); Hemoglobin 11.4 GM/DL (12.0-16.0); Immature Granulocytes % 1.4 %; Immature Granulocytes Absolute 0.38 #; Lymphocytes # 0.8 10*3/uL (1.4-4.0); Lymphocytes % 2.9 % (21.3-54.2); Mean Corpuscular HGB Conc 31.4 GM/DL (32-36); Mean Corpuscular Volume 95.3 FL (87-102); Mean Platelet Volume 13.6 FL (9.6-12.0); Monocytes % 3.3 % (1.7-12.7); Platelet Count 135 T/CUMM (130-400); Red Blood Count 3.81 MC/CUMM (3.8-5.5); Red Cell Distribution Width 16.9 % (9.3-17.3); White Blood Count 26.6 T/CUMM (4-12)
[2021-09-20] MEDS: NOREPINEPHRINE 8 MG in SODIUM CHLORIDE 0.9% 242 ML IV PRN (05:19)
[2021-09-20 05:31] LABS: INR 1.3
[2021-09-20 05:39] LABS: Band Neutrophils 4 % (0-10); Lymphocytes 4 % (20-55); Platelet Estimate Adequate; Segmented Neutrophils 86 % (50-85); Total Cells Counted 100
[2021-09-20 05:51] LABS: Albumin 2.3 G/DL (3.4-5.0); Bilirubin,Total 0.7 MG/DL (0.20-1.00); Calcium 7.5 MG/DL (8.5-10.1); Osmolality,Calculated 295.4 MOS/KG (273-304); Potassium 3.3 MMOL/L (3.5-5.1); Thyroid Stimulating Hormone 2.22 uIU/ml (0.358-3.74)
[2021-09-20] MEDS ORDERED: SODIUM CHLORIDE 0.9% 500 ML IV ONE ×2 (05:53→15:48)
[2021-09-20] MEDS ORDERED: PHENYLEPHRINE DRIP 40 MG/250 ML PREMIX IV PRN (06:08)
[2021-09-20] MEDS ORDERED: PHENYLEPHRINE DRIP 40 MG/250 ML PREMIX IV ONE ×3 (06:11→11:58)
[2021-09-20 06:18] LABS: ABG HCO3 12.9 MMOL/L (20-26); ABG PH 7.365 (7.35-7.45); ABG TCO2 8.3 MMOL/L (23-27)
[2021-09-20 06:21] LABS: ABG PCO2 15.8 MM HG (35-48)
[2021-09-20] MEDS ORDERED: SODIUM BICARBONATE 50 MEQ/50 ML VIAL IV ONE ×3 (07:09→23:42)
[2021-09-20] MEDS ORDERED: SODIUM BICARBONATE 50 MEQ/50 ML VIAL IV STA (07:15)
[2021-09-20] MEDS ORDERED: VASOPRESSIN 100 UNITS in SODIUM CHLORIDE 0.9% 95 ML IV PRN (07:17)
[2021-09-20] MEDS ORDERED: SODIUM CHLORIDE 0.9% 1,000 ML IV ONE ×2 (07:34→11:30)
[2021-09-20] MEDS ORDERED: GENTAMICIN INJ 180 MG in SODIUM CHLORIDE 0.9% 100 ML IV STA (07:36)
[2021-09-20] MEDS ORDERED: POTASSIUM CHLORIDE RIDER 10 MEQ/100 ML PREMIX IV PRN (07:38)
[2021-09-20] MEDS ORDERED: POTASSIUM CHLORIDE RIDER 20 MEQ/100 ML PREMIX IV PRN (07:38)
[2021-09-20] MEDS: SODIUM BICARB INJ 150 MEQ in DEXTROSE 5% 1,000 ML IV SCH ×3 (07:43→22:49)
[2021-09-20] MEDS ORDERED: AMIODARONE INJ 450 MG in DEXTROSE 5% 241 ML IV SCH (08:00)
[2021-09-20] MEDS ORDERED: AMIODARONE 450 MG/9 ML VIAL IV ONE (08:21)
[2021-09-20] MEDS: PHENYLEPHRINE DRIP 40 MG/250 ML PREMIX IV PRN ×5 (08:35→22:49)
[2021-09-20] MEDS ORDERED: NOREPINEPHRINE 4 MG/4 ML VIAL IV ONE (08:44)
[2021-09-20] MEDS ORDERED: ROCURONIUM 100 MG/10 ML VIAL IV ONE ×2 (08:50→09:00)
[2021-09-20] MEDS ORDERED: MIDAZOLAM 2 MG/2 ML VIAL ONE (08:50)
[2021-09-20] MEDS: NOREPINEPHRINE 16 MG in SODIUM CHLORIDE 0.9% 242 ML IV PRN ×3 (08:55→22:38)
[2021-09-20] MEDS ORDERED: MIDAZOLAM 2 MG/2 ML VIAL IV ONE (09:00)
[2021-09-20] MEDS ORDERED: MAGNESIUM OXIDE 400 MG TABLET PO SCH (09:00)
[2021-09-20] MEDS ORDERED: FLUoxetine 20 MG CAPSULE PO SCH (09:00)
[2021-09-20] MEDS ORDERED: SODIUM BICARBONATE 50 MEQ/50 ML SYRINGE IV ONE (09:00)
[2021-09-20] MEDS ORDERED: POTASSIUM CHLORIDE 20 MEQ TABLET PO SCH (09:00)
[2021-09-20] MEDS ORDERED: PANTOPRAZOLE 40 MG TABLET PO SCH (09:00)
[2021-09-20] MEDS ORDERED: MIDAZOLAM 100 MG in SODIUM CHLORIDE 0.9% 80 ML IV PRN (09:01)
[2021-09-20 09:33] LABS: ABG Base Excess -19.9 MMOL/L (-2.5-2.5); ABG HCO3 9.7 MMOL/L (20-26); ABG Oxygen Saturation 97.9 % (95-100); ABG TCO2 8.4 MMOL/L (23-27)
[2021-09-20 09:38] LABS: ABG PH 7.098 (7.35-7.45)
[2021-09-20] MEDS: LEVOTHYROXINE 50 MCG TABLET PO SCH (10:24)
[2021-09-20] MEDS ORDERED: KETAMINE 500 MG/10 ML VIAL ONE (10:25)
[2021-09-20] MEDS: MEGESTROL 40 MG TABLET PO SCH ×2 (10:25→20:37)
[2021-09-20] MEDS: ALPRAZolam 0.25 MG TABLET PO SCH ×3 (10:26→20:38)
[2021-09-20] MEDS ORDERED: HEPARIN 5,000 UNIT/1 ML VIAL SUBCUT SCH (10:30)
[2021-09-20] MEDS ORDERED: PANTOPRAZOLE 40 MG VIAL IV SCH (10:30)
[2021-09-20 11:12] LABS: ABG Base Excess -14.6 MMOL/L (-2.5-2.5); ABG HCO3 13.2 MMOL/L (20-26); ABG Oxygen Saturation 97.9 % (95-100); ABG PCO2 25.4 MM HG (35-48); ABG PH 7.259 (7.35-7.45); ABG TCO2 10.6 MMOL/L (23-27)
[2021-09-20 11:41] LABS: Osmolality,Calculated 305.1 MOS/KG (273-304); Potassium 4.1 MMOL/L (3.5-5.1)
[2021-09-20 11:44] LABS: Calcium 5.5 MG/DL (8.5-10.1)
[2021-09-20] MEDS ORDERED: MEROPENEM 500 MG in SODIUM CHLORIDE 0.9% 100 ML IV SCH (12:00)
[2021-09-20] MEDS: HYDROCORTISONE 100 MG VIAL IV SCH ×2 (12:03→19:19)
[2021-09-20] MEDS ORDERED: CALCIUM GLUCONATE 2,000 MG in SODIUM CHLORIDE 0.9% 100 ML IV ONE (13:00)
[2021-09-20] MEDS ORDERED: ALBUMIN 5% 12.5 GM/250 ML VIAL IV ONE ×2 (14:19→14:21)
[2021-09-20] MEDS ORDERED: DOPamine 800 MG/250 ML PREMIX IV PRN (15:47)
[2021-09-20 16:03] LABS: ABG Base Excess -22.8 MMOL/L (-2.5-2.5); ABG HCO3 5.5 MMOL/L (20-26); ABG Oxygen Saturation 97.5 % (95-100); ABG TCO2 6.1 MMOL/L (23-27)
[2021-09-20 16:09] LABS: ABG PCO2 19.8 MM HG (35-48); ABG PH 7.062 (7.35-7.45)
[2021-09-21] MEDS: PHENYLEPHRINE DRIP 40 MG/250 ML PREMIX IV PRN ×2 (01:40→04:38)
[2021-09-21] MEDS ORDERED: SODIUM BICARBONATE 50 MEQ/50 ML VIAL IV ONE ×2 (02:02→02:49)
[2021-09-21 03:56] LABS: ABG HCO3 17.1 MMOL/L (20-26); ABG Oxygen Saturation 98.4 % (95-100); ABG PCO2 28.5 MM HG (35-48); ABG PH 7.352 (7.35-7.45); ABG TCO2 15.2 MMOL/L (23-27)
[2021-09-21 03:57] LABS: Basophils % 0.3 % (0.0-0.8); Eosinophils % 0.3 % (0.00-10.9); Immature Granulocytes % 3.2 %; Immature Granulocytes Absolute 0.48 #; Lymphocytes # 1.9 10*3/uL (1.4-4.0); Lymphocytes % 12.6 % (21.3-54.2); Mean Corpuscular HGB Conc 31.7 GM/DL (32-36); Mean Corpuscular Volume 96.8 FL (87-102); Monocytes % 2.5 % (1.7-12.7); NRBC # 0.14 10*3/uL; Neutrophils % 81.1 % (38.7-73.9); Platelet Count 47 T/CUMM (130-400); Red Blood Count 1.86 MC/CUMM (3.8-5.5); White Blood Count 15.1 T/CUMM (4-12)
[2021-09-21] MEDS: HYDROCORTISONE 100 MG VIAL IV SCH (04:00)
[2021-09-21] MEDS: NOREPINEPHRINE 16 MG in SODIUM CHLORIDE 0.9% 242 ML IV PRN (04:01)
[2021-09-21 04:03] LABS: Hemoglobin 5.7 GM/DL (12.0-16.0)
[2021-09-21 04:15] LABS: Band Neutrophils 3 % (0-10); Eosinophils 1 % (0-10); Hypochromasia 2+; Lymphocytes 17 % (20-55); Nucleated Red Blood Cells 2 (0-5); Platelet Estimate Decreased; Segmented Neutrophils 74 % (50-85); Total Cells Counted 100
[2021-09-21 04:26] LABS: Albumin 0.9 G/DL (3.4-5.0); Bilirubin,Total 0.8 MG/DL (0.20-1.00); Osmolality,Calculated 313.4 MOS/KG (273-304); Total Protein 2.2 G/DL (6.4-8.2)
[2021-09-21] MEDS ORDERED: SODIUM CHLORIDE 0.9% 1,000 ML IV PRN (04:32)
[2021-09-21 04:36] LABS: Calcium 5.3 MG/DL (8.5-10.1)
[2021-09-21] MEDS ORDERED: SODIUM CHLORIDE 0.9% 500 ML IV ONE (05:10)
[2021-09-21] MEDS ORDERED: ATROPINE 1 MG/10 ML SYRINGE ONE (05:40)
[2021-09-21 05:50] VITALS: BP 36/22
[2021-09-21] MEDS ORDERED: ATROPINE 1 MG/10 ML SYRINGE IV ONE (05:50)
[2021-09-21] MEDS: LEVOTHYROXINE 50 MCG TABLET PO SCH (05:53)
[2021-09-21] MEDS ORDERED: CALCIUM GLUCONATE 1,000 MG in SODIUM CHLORIDE 0.9% 100 ML IV ONE (06:00)
[2021-09-21] MEDS: SODIUM BICARB INJ 150 MEQ in DEXTROSE 5% 1,000 ML IV SCH ×2 (07:12→08:51)
[2021-09-21] MEDS ORDERED: ASPIRIN CHEW 81 MG TABLET PO SCH (09:00)
== END 2021-09-21 06:02 | disposition expired | DRG 871 ==
LOC: EDBD → EDUNIT# → N.ED 17:57 → N.EDINP 21:31 → N.ICU 09-20 08:08
PROVIDERS: ADMIT Family Medicine; ATTEND Family Medicine